=== PATIENT | male | born 1955 | race Caucasian/White ===

== ENCOUNTER 2024-03-16 13:07 | Emergency (ER) | payer MEDICARE, SELFPAY ==
[2024-03-16 13:12] VITALS: BP 106/75; PULSE 106; TEMP 36.9; O2SAT 95; BMI 34.0
--- NOTE | 2024-03-16 13:21 | XR_ITS ---
The [address] [address] Patient Name: MARIA PETE MRN: [id number] date: 1955 Sex: M Assigned Patient Location: ER Current Patient Location: ED.MAIN Accession/Order Number: [id number] Exam Date: 03/16/2024 13:36 Report Date: 03/16/2024 13:59 At the request of: NERIS MCKNIGHT Procedure: XR forearm RT 2V EXAM: XR forearm RT 2V HISTORY: pain injury ; technologist notes state pain and bruising of the proximal right forearm after a fall today. COMPARISON: None. TECHNIQUE: AP lateral views of the right forearm performed. FINDINGS: The bony structures are osteopenic. There is 1.5 mm on her minus variance. There is no fracture. The rest and elbow joints are otherwise unremarkable. There is a soft tissue injury along the radial and dorsal aspects of the proximal right forearm with the stranding densities within the subcutaneous tissues suggesting either edema or ecchymosis. There is no radiopaque foreign body. XR/XR forearm RT 2V IMPRESSION: There is no acute fracture. Soft tissue injury along the radial and dorsal aspects of the proximal right forearm with the stranding densities within the subcutaneous tissues suggesting either edema or ecchymosis. Electronically authenticated by: OANH MATOS Date: 03/16/2024 13:59
--- NOTE | 2024-03-16 13:27 | ED_ITS ---
HPI HPI - Extremity Injury (Upper) General Chief Complaint: Extremity Injury, Upper Stated Complaint: UPPER EXTREMITY INJURY/FALL Time Seen by Provider: 03/16/24 13:11 Source: patient and family Mode of arrival: walk-in Limitations: no limitations History of Present Illness HPI narrative: 68-year-old male presents to the emergency department with significant other with complaint of injury to his right forearm. Tripped on a box, falling, hitting a table, causing injury. Complains of pain, tenderness, swelling. Denies any other injury, motor or sensory changes, paresthesias. Patient is right-handed. Quality:?Blunt trauma Severity:?Moderate Timing:?Injury occurred prior to arrival, constant Context: Normal setting and activity? Modifying factors:?Pain worse with palpation, Associated symptoms: Swelling Related Data Previous Rx's ?Medication ?Instructions ?Recorded oxycodone-acetaminophen 5 mg-325 1 tab PO Q8H PRN pain 2 days #5 03/16/24 mg tablet (Percocet) tabs Allergies Allergy/AdvReac Type Severity Reaction Status Date / Time No Known Drug Allergies Allergy Verified 03/16/24 13:14 Opioid HPI Opioid Management Most Recent Pain and Opioid Data: Last Pain Scale 8 03/16/24 13:33 Last MAR Pain Assessment 03/16/24 13:33 Review of Systems ROS Constitutional Denies: fatigue or malaise Musculoskeletal Reports: extremity pain and extremity swelling Neurological Denies: numbness in extremities or weakness in extremities Endocrine Denies: fatigue or other (wound) Exam Constitutional Vital Signs, click to edit/add: Last Vital Signs Temp 98.4 F 03/16/24 13:12 Pulse 106 H 03/16/24 13:12 Resp 22 H 03/16/24 13:12 BP 106/75 03/16/24 13:12 Pulse Ox 95 03/16/24 13:12 O2 Del Method Nasal Cannula 03/16/24 13:12 O2 Flow Rate 3 03/16/24 13:12 Documenting provider has reviewed patient's vital signs: yes Common normals: no apparent distress and oriented x3 General appearance: well developed Respiratory Other: Patient on oxygen. Patient chronically on oxygen, history of COPD. Displays slight increased work of breathing, but states this is normal. Cardio Peripheral pulses: radial pulses present right 2+ Extremity Other: Right forearm: +tenderness to the proximal forearm over the brachial radialis muscle with associated swelling.? No tenderness to the elbow, remainder of forearm, wrist, hand.? No ecchymosis, discoloration, crepitus, deformity, instability, warmth.? ROM full flexion extension of the elbow and wrist.? Strength 5/5 Neuro Common normals: oriented x3, no focal motor deficits and no sensory deficits noted Psych Common normals: mental status grossly normal and thought process normal Thought process: normal thought process Course Reevaluation(s) Reevaluation #1: Discussed with patient and significant other results, plan, and disposition. He is agreeable to plan. On reevaluation, notes some improvement of the pain. Time: 14:10 Vital Signs Vital signs: Vital Signs Temperature 98.4 F 03/16/24 13:12 Pulse Rate 106 H 03/16/24 13:12 Respiratory Rate 22 H 03/16/24 13:12 Blood Pressure 106/75 03/16/24 13:12 Pulse Oximetry 95 03/16/24 13:12 Oxygen Delivery Method Nasal Cannula 03/16/24 13:12 Oxygen Delivery Flow Rate 3 03/16/24 13:12 Temperature 98.4 F 03/16/24 13:12 Pulse Rate 106 H 03/16/24 13:12 Respiratory Rate 22 H 03/16/24 13:12 Blood Pressure 106/75 03/16/24 13:12 Pulse Oximetry 95 03/16/24 13:12 Oxygen Delivery Method Nasal Cannula 03/16/24 13:12 Oxygen Delivery Flow Rate 3 03/16/24 13:12 MDM - Extremity Injury (Upper) MDM Narrative Medical decision making narrative: This is a pleasant 68-year-old gentleman who presented to the emergency department significant other with complaint of injury to his right forearm after tripping and falling. On arrival, afebrile, vital signs are stable. Exam, nontoxic, somewhat uncomfortable appearing patient in no distress. He is holding his forearm. He has notable swelling and tenderness over the proximal, brachial radialis muscle. No other areas of tenderness are identified. Range of motion full. Neurovascularly intact. Right forearm x-ray imaging, per radiologist reveals no acute or concerning findings. Favor right forearm contusion Fracture, dislocation less likely based on imaging Additional, independent history obtained from patient's significant other Independent review of his x-rays revealed no acute findings Patient was given dose of Percocet and Motrin in the emergency department. Ice pack was applied Disposition ? The patient was discharged. Plan: Patient will be discharged to home. Condition at time of disposition: stable He was given prescription for limited supply of Percocet Advised rest, ice, elevation Advised to follow up with Ortho provider. Referral information placed in discharge paperwork. Advised to return for any worsening and/or development of new, concerning signs or symptoms PLEASE NOTE: Portions of the medical record may have been produced using electronic drier and evaporator operator and may contain errors with respect to translation of words which may not have been identified prior to finalization of the chart. Discharge Plan Discharge Stand Alone Forms: Work/School Release, Portal Instructions Chief Complaint: Extremity Injury, Upper Clinical Impression: Pain in right forearm Contusion of forearm, right Qualifiers: Encounter type: initial encounter Qualified Code(s): S50.11XA - Contusion of right forearm, initial encounter Patient Disposition: Home, Self-Care Time of Disposition Decision: 14:09 Condition: Good Mode of Transportation: Private Vehicle Prescriptions / Home Meds: New oxycodone-acetaminophen [Percocet] 5-325 mg tablet 1 tab PO Q8H PRN (Reason: pain) 2 Days Qty: 5 0RF Print Language: [place] Instructions: Contusion in Adults (ED) Referrals: Gumaro Salter MD [Physician] - 1 week
[2024-03-16] MEDS: OXYCODONE HCL/ACETAMINOPHEN 5MG/325MG 1 TAB PO (13:33)
[2024-03-16] MEDS: IBUPROFEN 600 MG TABLET PO (13:33)
[2024-03-16 14:23] VITALS: BP 110/80; PULSE 99; O2SAT 94
== END 2024-03-16 14:24 | disposition home or self-care (01) ==
PROVIDERS: Emergency Provider Emergency Medicine; PCP Family Medicine
DX: S50.11XA Contusion of right forearm, initial encounter (principal); M79.631 Pain in right forearm; W01.190A Fall on same level from slipping, tripping and stumbling with subsequent striking against furniture, initial encounter
CPT/HCPCS: 73090; 99283